=== PATIENT | female | born 1985 | race Caucasian/White ===

== ENCOUNTER 2025-05-13 10:48 | Outpatient (CLI) | payer OTHER | END 2025-05-13 10:49 | disposition home or self-care (01) | LOC: CSHMAMMO 10:48 | PROVIDERS: ATTEND Family Medicine | DX: Z12.31 Encounter for screening mammogram for malignant neoplasm of breast (principal); N64.89 Other specified disorders of breast | CPT/HCPCS: 77063; 77067 ==

== ENCOUNTER 2025-05-20 08:19 | Outpatient (CLI) | payer OTHER | END 2025-05-20 08:20 | disposition home or self-care (01) | LOC: CSHMAMMO 08:19 | PROVIDERS: ATTEND Family Medicine | DX: N64.89 Other specified disorders of breast (principal) | CPT/HCPCS: G0279 ==